=== PATIENT | male | born 1950 | race Hispanic/Latino ===

== ENCOUNTER → 2021-09-25 | Outpatient (CLI) | payer OTHER | END | disposition home or self-care (01) | LOC: RAH 10:07 | PROVIDERS: ATTEND Family Medicine | DX: I10 Essential (primary) hypertension (principal); R01.1 Cardiac murmur, unspecified; M47.815 Spondylosis without myelopathy or radiculopathy, thoracolumbar region | CPT/HCPCS: 71046 ==